=== PATIENT | male | born 1985 | race Caucasian/White ===

== ENCOUNTER 2021-01-10 20:56 | Emergency (ER) | payer OTHER ==
[~2021-01-10] VITALS: Ht 172.7 cm; Wt 86.2 kg
[2021-01-10] MEDS ORDERED: Budeprion Xl300 MG PO (21:46)
== END 2021-01-10 22:05 | disposition home or self-care (01) ==
LOC: ER 20:56
DX: F11.20 Opioid dependence, uncomplicated (principal); Z76.0 Encounter for issue of repeat prescription
CPT/HCPCS: 99281; A9270

== ENCOUNTER 2021-01-11 16:59 | Emergency (ER) | payer OTHER ==
[~2021-01-11] VITALS: Ht 172.7 cm; Wt 86.2 kg
[~2021-01-11 16:59] MED LIST: Budeprion Xl300 MG PO
== END 2021-01-11 18:21 | disposition home or self-care (01) ==
LOC: ER 16:59
DX: F11.10 Opioid abuse, uncomplicated (principal); Z79.899 Other long term (current) drug therapy
CPT/HCPCS: 93005; 93010; 99283-25; A9270